=== PATIENT | male | born 1970 | race African-American/Black ===

== ENCOUNTER 2017-01-28 12:48 | Emergency (ER) | payer OTHER ==
[~2017-01-28] VITALS: Ht 188 cm; Wt 114.0 kg
[2017-01-28 12:51] VITALS: BP 146/102
== END 2017-01-28 16:35 | disposition left against medical advice (07) ==
LOC: ER 12:48
DX: S61.211A Laceration without foreign body of left index finger without damage to nail, initial encounter (principal); X58.XXXA Exposure to other specified factors, initial encounter; Y93.89 Activity, other specified; Y92.89 Other specified places as the place of occurrence of the external cause; Y99.8 Other external cause status; Z53.21 Procedure and treatment not carried out due to patient leaving prior to being seen by health care provider